=== PATIENT | male | born 1965 | race Caucasian/White ===

== ENCOUNTER 2016-09-23 01:34 | Emergency (ER) | payer OTHER ==
--- NOTE | 2016-09-23 04:11 | ED NURSING NOTES ---
Clinical Report - Nurses [facility] [address] [place] [address] 09/23/2016 1:34 Patient: JAIC MCMAHON JR TRIAGE Triage time 01:Sep 23 2016. Acuity: LEVEL 3. Chief Complaint: ABDOMINAL PAIN, NAUSEA and VOMITING and (Bilat Lower quadrant ABD pain. Started at 2130). 01:42 09/23/16. SEPSIS SCREEN: Sepsis Screen. Negative (no infection suspected/documented). --01:42 Anabel Resendiz R.N. 01:37 09/23/16. BP: 129/83 (large adult cuff) taken on the left arm, while sitting. HR: 66. RR: 20. O2 saturation: 100% on room air. Temp: 98.1 F (oral). Pain level now: 01/31. --01:42 Anabel Resendiz R.N. Weight: 90.7 kg stated. Height/Length: 65 inches Per Patient. BMI: 33.3. --01:41 Anabel Resendiz R.N. Medications ASA Oral. Flonase Nasal. Marijuana (for pain). Montelukast Sodium Oral. Omeprazole Oral. PRO AIR INHALER. Ranitidine HCl Oral. Simvastatin Oral. Vitamins/Minerals Oral. ZyrTEC Allergy Oral. --01:38 Anabel Resendiz R.N. Allergies Latex. Penicillin. --01:38 Anabel Resendiz R.N. History Arrived by EMS. Historian: patient. The patient has had nausea, vomiting and abdominal pain. 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 SOCIAL HX: Never smoker. History of occasional drug use: marijuana. (3 weeks ago). No alcohol use. No recent travel. No infectious disease exposure. No known contact with a sick individual. ABUSE ASSESSMENT: No report of abuse. --01:42 Anabel Resendiz R.N. Last oral intake by patient was dinner. --01:43 Anabel Resendiz R.N. PROBLEMS: Sleep apnea . Wears Contacts. Corneal Ulcer. Hypercholesterolemia. COPD - Chronic Obstructive Pulmonary Disease. Asthma. --01:38 Anabel Resendiz R.N. ADDITIONAL SURGERIES: Knee Surgery. Shoulder Surgery. --01:38 Anabel Resendiz R.N. Interventions ID band on patient. To treatment room. --01:42 Anabel Resendiz R.N. NURSING PROGRESS NOTES 01:42 09/23/16. The plan of care for this patient has been created. Monitoring of patient in place. Patient gowned. Head of bed elevated. Reassurance given. Two patient identifiers checked. Call light placed in reach. Side rails up x 2. Bed placed in lowest position. Brakes of bed on. Patient ready for evaluation- chart flagged and ED physician notified. --01:42 Anabel Resendiz R.N. 01:50 09/23/2016 Site #1 started via IV in the left antecubital space with an 20g angiocath, with aseptic technique and good blood return; one attempt. Blood drawn: rainbow set. Labeled in the presence of the patient and sent to the lab. Saline lock flushed with 10 mL saline (Preformed by LIDIA Chase). --01:51 Anabel Resendiz R.N. 01:51 09/23/2016 Zofran (Ondansetron HCl) IVP 4 mg given over 1 minute(s) via site #1. Allergies verified and confirmed 5 rights. IV patency established. IV site checked: no pain, redness, or swelling. IV flushed thoroughly pre- and post-medication administration. IVP given by RN. --01:51 Anabel Resendiz R.N. 02:07 09/23/2016 Dilaudid (HYDROmorphone HCl PF) IVP 0.5 mg given over 2 minute(s) via site #1. Sedative warning given to the patient. IV patency established. IV site checked: no pain, redness, or swelling. IV flushed thoroughly pre- and post-medication administration. IVP given by RN. --02:12 Salvatore Kennedy R.N. 02:25 09/23/16. ( Patients pain comes and goes, bilat lower abd, blanket given). --02:25 Anabel Resendiz R.N. 02:23 09/23/16. BP: 151/72. HR: 71. RR: 18. O2 saturation: 100% on room air. Pain level now: 12/01. --02:25 Anabel Resendiz R.N. 03:13 09/23/16. ( Patient resting, nausea has decreased. Patient still having bilat lower abd pain that comes and goes. Patient given blanket for comfort measures). --03:13 Anabel Resendiz R.N. 03:16 09/23/16. BP: 110/51 (large adult cuff) taken on the left arm, while sitting. HR: 81. RR: 18. O2 saturation: 95% on room air. Pain level now: 07/01. --03:22 Anabel Resendiz R.N. <<STRICKEN ENTRY-- 03:59 09/23/16. ( Patients friend at bedside now, patient talkative with friend. Patient offered blanket and he declined). --03:59 Anabel Resendiz R.N. --END STRIKE>> Charted On Wrong Patient --04:09 Anabel Resendiz R.N. <<STRICKEN ENTRY-- 03:59 09/23/16. BP: 111/63 (regular adult cuff) taken on the left arm. HR: 79. RR: 18. O2 saturation: 92% on room air. --04:00 Anabel Resendiz R.N. --END STRIKE>> Charted on wrong patient. --04:09 Anabel Resendiz R.N. DISPOSITION / DISCHARGE 04:49 09/23/2016 Site #1 removed upon discharge. Bandaid applied. --04:49 Anabel Resendiz R.N. 04:50 09/23/16. Departure time: 04:45 Sep 23 2016. Condition at departure: improved. No learning barriers present. Discharge instructions provided and reviewed with the patient. Reviewed medication(s) side effects, precautions, dosing and course information. Prescription(s) given to the patient. Patient verbalized understanding. Written instructions provided in Arabic. The patient was discharged by the physician. He was discharged home. He left the Emergency Department ambulatory and via taxi. Driving (Taxi). --04:50 Anabel Resendiz R.N. 04:48 09/23/16. BP: 119/61 (large adult cuff) taken on the left arm. HR: 83. RR: 16. O2 saturation: 96% on room air. Temp: 98.2 F (oral). Pain level now: 07/01. --04:50 Anabel Resendiz R.N. Locked/Released at 09/23/2016 4:53 by Anabel Resendiz R.N.
--- NOTE | 2016-09-23 04:11 | ED ORDER SUMMARY ---
..... Patient: JACI MCMAHON JR OrderSheet [facility] VisitID: [id number] [address] [place] [address] 51y, M Registration Date/Time: 09/23/2016 ORDER SHEET Weight: 90.7 kg (stated) Allergies: Latex, Penicillin GENERAL ORDERS: CBC w Diff Urgent (:09/23/2016 JSanders R.N. per protocol) (1:50 JSanders R.N.) CMP Urgent (:09/23/2016 JSanders R.N. per protocol) (1:50 JSanders R.N.) PT with INR Urgent (:09/23/2016 JSanders R.N. per protocol) (1:50 JSanders R.N.) Amylase Urgent (:09/23/2016 JSanders R.N. per protocol) (1:50 JSanders R.N.) Lipase Urgent (:09/23/2016 JSanders R.N. per protocol) (1:50 JSanders R.N.) MEDICATION ORDERS: IV FLUIDS: IV Saline Lock (:09/23/2016 JSanders R.N. per protocol) (1:51 JSanders R.N.) Zofran IV 4 mg (NOW) (:49 09/23/2016 JSanders R.N. per protocol) (1:51 JSanders R.N.) Dilaudid IV 0.5 mg (HIGH ALERT MEDICATION, NOW) (02:05 09/23/2016 Adalberto FREDERICK) (Ack 2:06 DDavis R.N.) (2:12 DDavis R.N.) ORDER SHEET NOTES: [Electronically signed by Anabel Resendiz R.N. (04:53 09/23/2016)] [Electronically signed by Deepa Leiva MD (11:06 10/06/2016)] [Electronically locked/signed by Anabel Resendiz R.N. (04:53 09/23/2016)]
--- NOTE | 2016-09-23 04:11 | ED ORDER SUMMARY ---
..... Patient: JACI MCMAHON JR OrderSheet [facility] VisitID: [id number] [address] [place] [address] 51y, M Registration Date/Time: 09/23/2016 ORDER SHEET Weight: 90.7 kg (stated) Allergies: Latex, Penicillin GENERAL ORDERS: CBC w Diff Urgent (:09/23/2016 JSanders R.N. per protocol) (1:50 JSanders R.N.) CMP Urgent (:09/23/2016 JSanders R.N. per protocol) (1:50 JSanders R.N.) PT with INR Urgent (:09/23/2016 JSanders R.N. per protocol) (1:50 JSanders R.N.) Amylase Urgent (:09/23/2016 JSanders R.N. per protocol) (1:50 JSanders R.N.) Lipase Urgent (:09/23/2016 JSanders R.N. per protocol) (1:50 JSanders R.N.) MEDICATION ORDERS: IV FLUIDS: IV Saline Lock (:09/23/2016 JSanders R.N. per protocol) (1:51 JSanders R.N.) Zofran IV 4 mg (NOW) (:49 09/23/2016 JSanders R.N. per protocol) (1:51 JSanders R.N.) Dilaudid IV 0.5 mg (HIGH ALERT MEDICATION, NOW) (02:05 09/23/2016 Adalberto FREDERICK) (Ack 2:06 DDavis R.N.) (2:12 DDavis R.N.) ORDER SHEET NOTES: [Electronically signed by Anabel Resendiz R.N. (04:53 09/23/2016)] [Electronically signed by Deepa Leiva MD (11:06 10/06/2016)] [Electronically locked/signed by Anabel Resendiz R.N. (04:53 09/23/2016)]
--- NOTE | 2016-09-23 04:11 | ED CLINICAL REPORT ---
Clinical Report - Physicians/Mid Levels [facility] [address] [place] [address] 09/23/2016 1:34 Patient: JACI MCMAHON JR Time Seen: 01:47. Arrived- By private vehicle. Historian- patient. HISTORY OF PRESENT ILLNESS Chief Complaint: ABDOMINAL PAIN and VOMITING. At its maximum, severity described as moderate. When seen in the E.D., severity described as moderate. Modifying factors. Not worsened by anything. Not relieved by anything. It is described as "pain" and it is described as located in the right lower quadrant and left lower quadrant and in the lower abdomen. This started yesterday at about 2130 and is still present. The patient has had nausea, loss of appetite and vomiting. No diarrhea. Similar symptoms previously: Occasionally. Recent medical care: Not recently seen/assessed. REVIEW OF SYSTEMS No constipation, black stools, hematemesis, difficulty with urination or pain with urination. No urinary frequency, bloody stools, fever, headache or sore throat. No blurred vision, chest pain, difficulty breathing, cough or joint pain. No skin rash, chills or back pain. All systems otherwise negative, except as recorded above. PAST HISTORY Problems: Sleep apnea . Corneal Ulcer. Allergies. Hypercholesterolemia. COPD - Chronic Obstructive Pulmonary Disease. Asthma. Additional Surgeries: Knee Surgery. Shoulder Surgery. Medications: ASA Oral. Flonase Nasal. Marijuana (for pain). Montelukast Sodium Oral. Omeprazole Oral. PRO AIR INHALER. Ranitidine HCl Oral. Simvastatin Oral. Vitamins/Minerals Oral. ZyrTEC Allergy Oral. Allergies: Latex. Penicillin. SOCIAL HISTORY Never smoker. History of occasional drug use: marijuana. No alcohol use. ADDITIONAL NOTES The nursing notes have been reviewed. PHYSICAL EXAM Vital Signs: 09/23/2016 01:37 BP: 129/83. HR: 66. RR: 20. O2 saturation: 100%. Temp: 98.1 F. Pain level now: 10/10. Have been reviewed. Appearance: Alert. Oriented X3. No acute distress. Eyes: Pupils equal, round and reactive to light. Eyes normal inspection. ENT: Nose normal. Neck: Normal inspection. CVS: Normal heart rate and rhythm. Heart sounds normal. Pulses normal. Respiratory: No respiratory distress. Breath sounds normal. Abdomen: Soft. Mild tenderness in the periumbilical area. No guarding or rebound tenderness. Back: Normal inspection. No CVA tenderness. Skin: Skin warm and dry. Normal skin color. No rash. Normal skin turgor. Extremities: Extremities exhibit normal ROM. No lower extremity edema. Neuro: No motor deficit. No sensory deficit. (Grossly oriented.). LABS, X-RAYS, AND EKG Laboratory Tests: CBC w Diff: (MARIELA: 09/23/2016 01:45) ( MsgRcvd 09/23/2016 01:59) Final results Test Result Flag Units (Reference) WHITE BLOOD COUNT 22.4 H K/uL (4.5-11.5) RED BLOOD COUNT 5.49 M/uL (4.50-5.90) HEMOGLOBIN 15.9 gm/dL (13.5-17.5) HEMATOCRIT 48.1 % (41.0-53.0) MEAN CELL VOLUME 88 fL (80-100) MEAN CORPUSCULAR HGB 29 pg (26-34) MEAN CORPUSCULAR HGB CONC 33 g/dL (31-37) RED CELL DISTRIBUTION WIDTH 13.3 % (11.6-14.8) PLATELET COUNT 347 K/uL (150-400) NEUTROPHIL % 79.1 H % (50-75) LYMPH % 16.6 L % (25-40) MONO % 3.2 % (3-14) EOSINOPHIL % 0.8 % (0-4) BASOPHIL % 0.3 % (0-2) PT with INR: (MARIELA: 09/23/2016 01:45) ( MsgRcvd 09/23/2016 02:07) Final results Test Result Flag Units (Reference) INR 1.0 (0.8-1.2) Low Intensity Therapy: INR 1.5-2.0 PT range 18.5-23.1Mod.Intensity Therapy: INR 2.0-3.0 PT range 23.1-31.5High Intensity Therapy: INR 2.5-3.5 PT range 27.4-35.5High Intensity Therapy 2: INR 3.0-4.0 PT range 31.5-39.3 CMP: (MARIELA: 09/23/2016 01:45) ( MsgRcvd 09/23/2016 02:13) Final results Test Result Flag Units (Reference) GLUCOSE 145 H mg/dL (70-110) BUN 9 mg/dL (7-18) CREATININE 1.2 mg/dL (0.6-1.3) Estimated GFR >60 mL/min Estimated GFR- >60 mL/min Note: Persistent reduction over 3 months in eGFR<60 mL/min/1.73 m2 defines CKD. Patients with eGFR values>=60 mL/min/1.73 m2 may also have CKD if evidence ofpersistent proteinuria. Additional information may be foundat www.kidney.org. SODIUM 140 mmol/L (136-145) POTASSIUM 4.3 mmol/L (3.5-5.1) CHLORIDE 101 mmol/L (98-107) CARBON DIOXIDE 27 mmol/L (21-32) CALCIUM 9.8 mg/dL (8.5-10.1) TOTAL PROTEIN 8.0 g/dL (6.4-8.2) ALBUMIN 3.9 g/dL (3.3-5.0) BILIRUBIN, TOTAL 0.4 mg/dL (0.0-1.0) ALKALINE PHOSPHATASE 61 U/L (46-116) AST (SGOT) 25 U/L (15-37) ALT (SGPT) 41 U/L (12-78) LIPASE 227 U/L (73-393) AMYLASE 58 U/L (25-115) . Pulse Oximetry: 09/23/2016 01:37 O2 saturation: 100%. (FIO2 - room air). Interpretation: normal. PROGRESS AND PROCEDURES Course of Care: PT was given Zofran, Dilaudid, and IV fluid for symptomatic relief. His abdominal pain and tenderness was nonspecific, and pt was worked up with labs and a UA. These were unremarkable, other than a leukocytosis. At this point, the pt does not have a surgical abdomen, and the tenderness is nonspecific. I do not feel that CT is indicated at this time. We have discussed the usual indications for return. Patient counseled in person regarding the patient's stable condition, test results, diagnosis and need for follow-up. Concerns were addressed. Old medical records reviewed. Disposition: Discharged. Condition: stable and improved. CLINICAL IMPRESSION Acute food sensitivity gastroenteritis. INSTRUCTIONS Take clear liquids only (frequent sips; plenty of fluids) as needed and until better. Advance diet as tolerated. Warnings: GENERAL WARNINGS: Return or contact your physician immediately if your condition worsens or changes unexpectedly, if not improving as expected, or if other problems arise. Your Current Medications: CONTINUE TAKING THE FOLLOWING MEDICATIONS: ASA Oral. Flonase Nasal. Marijuana* : for pain. Montelukast Sodium Oral. Omeprazole Oral. PRO AIR INHALER*. Ranitidine HCl Oral. Simvastatin Oral. Vitamins/Minerals Oral. ZyrTEC Allergy Oral. Prescription Medications: Zofran (orally disintegrating tablets) 4 mg: take 1-2 orally every 6 hours as needed for nausea. Dispense twenty (20). No refill. Substitution is permissible. Follow-up: Follow up with your doctor as needed. Understanding of the discharge instructions verbalized by patient. (Electronically signed by Deepa Leiva MD 10/06/2016 11:06)
--- NOTE | 2016-10-06 11:06 | ED DISCHARGE INSTRUCTIONS ---
Patient: JACI MCMAHON JR General Instructions [facility] VisitID: [id number] [place] [address] 51y, M Registration Date/Time: 09/23/2016 Acute food sensitivity gastroenteritis. INSTRUCTIONS Take clear liquids only (frequent sips; plenty of fluids) as needed and until better. Advance diet as tolerated. Warnings: GENERAL WARNINGS: Return or contact your physician immediately if your condition worsens or changes unexpectedly, if not improving as expected, or if other problems arise. Your Current Medications: CONTINUE TAKING THE FOLLOWING MEDICATIONS: ASA Oral. Flonase Nasal. Marijuana* : for pain. Montelukast Sodium Oral. Omeprazole Oral. PRO AIR INHALER*. Ranitidine HCl Oral. Simvastatin Oral. Vitamins/Minerals Oral. ZyrTEC Allergy Oral. Prescription Medications: Zofran (orally disintegrating tablets) 4 mg: take 1-2 orally every 6 hours as needed for nausea. Dispense twenty (20). No refill. Substitution is permissible. Follow-up: Follow up with your doctor as needed. Understanding of the discharge instructions verbalized by patient. ADDITIONAL INFORMATION Food Poisoning Or Viral Gastroenteritis (6Yr-Adult) You have a stomach illness that is likely either food poisoning or viral gastroenteritis. Food poisoning occurs from1 to 24 hours after eating contaminated food and lasts up to 1 to 2 days. Viral gastroenteritis is commonly known as the stomach flu. It may last up to a week. Symptoms of both illnesses may include vomiting, diarrhea, fever, and stomach cramping. Antibiotics are not an effective treatment for either problem, but simple home treatment can give relief. Home Care: If symptoms are severe, rest at home for the next 24 hours. You may use acetaminophen (Tylenol) or ibuprofen (Motrin, Advil) to control fever, unless another medication was prescribed. [NOTE: If you have chronic liver or kidney disease or ever had a stomach ulcer or GI bleeding, talk with your doctor before using these medications. Do not give aspirin to anyone under 18 years of age who is ill with a fever.] Avoid tobacco and alcohol consumption. These may worsen your symptoms. If medicines for diarrhea or vomiting were prescribed, take these only as directed. Never take these without a healthcare providers approval. During the first12 to 24hours follow the diet below: BEVERAGES: Sport drinks like Gatorade, soft drinks without caffeine; timo bishnu, mineral water (plain or flavored), decaffeinated tea and coffee. SOUPS: Clear broth, consomm and bouillon DESSERTS: Plain gelatin (Jell-O), popsicles and fruit juice bars. During the next 24 hours you may add the following to the above: Hot cereal, plain toast, bread, rolls, crackers Plain noodles, rice, mashed potatoes, chicken noodle or rice soup Unsweetened canned fruit (avoid pineapple), bananas Limit fat intake to less than 15 grams per day by avoiding margarine, butter, oils, mayonnaise, sauces, gravies, fried foods, peanut butter, meat, poultry, and fish. Limit fiber; avoid raw or cooked vegetables, fresh fruits (except bananas) and bran cereals. Limit caffeine and chocolate. No spices or seasonings except salt. Gradually resume a normal diet as you feel better and your symptoms lessen. Follow Up with your doctor as advised if you are not better in 2 days. If a stool (diarrhea) sample was taken, you may call in 2 days (or as directed) for the results. Get Prompt Medical Attention if any of the following occur: Increasing abdominal pain or constant lower right abdominal pain Continued vomiting (unable to keep liquids down) Frequent diarrhea (more than 5 times a day) Blood in vomit or stool (black or red color) Signs of dehydration: increased thirst, dark urine, reduced or no urine output, dry mouth and tongue, tireness or weakness, dizziness when standing, rapid breathinng New rash Fever of 100.4F (38C) oral or higher, not better with fever medication You have been given the following additional information: Food Poisoning Or Gastroenteritis (6Y-Adult) (Electronically signed by Deepa Leiva MD 10/06/2016 11:06)
--- NOTE | 2016-10-06 11:06 | ED MAR SUMMARY ---
..... Medication Administration Record [facility] [address] [place] [address] Patient: JACI MCMAHON Visit ID: [id number] 51y, M Weight: 90.7 kg Height/Length: 65 in BMI: 33.3 ALLERGIES: Latex, Penicillin Given 01:51 09/23/2016 Anabel Resendiz R.N. Medication Administered: ZOFRAN [IVP] (ONDANSETRON HCL), Dose: 4 mg IVP over 1 minute(s), Site: #1 left AC. Medication Ordered: Zofran IV 4 mg (NOW). Given 02:07 09/23/2016 Salvatore Kennedy R.N. Medication Administered: DILAUDID [IVP] (HYDROMORPHONE HCL PF), Dose: 0.5 mg IVP over 2 minute(s), Site: #1 left AC. Medication Ordered: Dilaudid IV 0.5 mg (HIGH ALERT MEDICATION, NOW).
--- NOTE | 2016-10-06 11:06 | ED MAR SUMMARY ---
..... Medication Administration Record [facility] [address] [place] [address] Patient: JACI MCMAHON Visit ID: [id number] 51y, M Weight: 90.7 kg Height/Length: 65 in BMI: 33.3 ALLERGIES: Latex, Penicillin Given 01:51 09/23/2016 Anabel Resendiz R.N. Medication Administered: ZOFRAN [IVP] (ONDANSETRON HCL), Dose: 4 mg IVP over 1 minute(s), Site: #1 left AC. Medication Ordered: Zofran IV 4 mg (NOW). Given 02:07 09/23/2016 Salvatore Kennedy R.N. Medication Administered: DILAUDID [IVP] (HYDROMORPHONE HCL PF), Dose: 0.5 mg IVP over 2 minute(s), Site: #1 left AC. Medication Ordered: Dilaudid IV 0.5 mg (HIGH ALERT MEDICATION, NOW).
--- NOTE | 2016-10-06 11:06 | ED MED RECONCILIATION SUMMARY ---
Patient: JACI MCMAHON Medication Reconciliation Report [facility] VisitID: [id number] [address] [place] [address] 51y, M Registration Date/Time: 09/23/2016 Weight: 90.7 kg Height/Length: 65 in. BMI: 33.3 ALLERGIES: Latex, Penicillin The patient's Home Medications are listed below: CONTINUE TAKING THE FOLLOWING MEDICATIONS: ASA Oral Flonase Nasal Marijuana, for pain Montelukast Sodium Oral Omeprazole Oral PRO AIR INHALER Ranitidine HCl Oral Simvastatin Oral Vitamins/Minerals Oral ZyrTEC Allergy Oral The source(s) of the original Home Medication information: Not obtained. The following Medications were given to the patient in the Emergency Department: Zofran [IVP] IVP 4 mg, administered: 09/23/2016 1:51:00 AM Dilaudid [IVP] IVP 0.5 mg, administered: 09/23/2016 2:07:00 AM The following Medications were prescribed to the patient: Zofran (orally disintegrating tablets) 4 mg: take 1-2 orally every 6 hours as needed for nausea. Dispense twenty (20). No refill. Substitution is permissible. -- Deepa Leiva MD
--- NOTE | 2016-10-06 11:06 | ED MED RECONCILIATION SUMMARY ---
Patient: JACI MCMAHON Medication Reconciliation Report [facility] VisitID: [id number] [address] [place] [address] 51y, M Registration Date/Time: 09/23/2016 Weight: 90.7 kg Height/Length: 65 in. BMI: 33.3 ALLERGIES: Latex, Penicillin The patient's Home Medications are listed below: CONTINUE TAKING THE FOLLOWING MEDICATIONS: ASA Oral Flonase Nasal Marijuana, for pain Montelukast Sodium Oral Omeprazole Oral PRO AIR INHALER Ranitidine HCl Oral Simvastatin Oral Vitamins/Minerals Oral ZyrTEC Allergy Oral The source(s) of the original Home Medication information: Not obtained. The following Medications were given to the patient in the Emergency Department: Zofran [IVP] IVP 4 mg, administered: 09/23/2016 1:51:00 AM Dilaudid [IVP] IVP 0.5 mg, administered: 09/23/2016 2:07:00 AM The following Medications were prescribed to the patient: Zofran (orally disintegrating tablets) 4 mg: take 1-2 orally every 6 hours as needed for nausea. Dispense twenty (20). No refill. Substitution is permissible. -- Deepa Leiva MD
== END 2016-09-23 04:45 | disposition home or self-care (01) ==
LOC: ED SRH 01:34
DX: K52.29 Other allergic and dietetic gastroenteritis and colitis (principal); J44.9 Chronic obstructive pulmonary disease, unspecified; Z79.82 Long term (current) use of aspirin; Z88.0 Allergy status to penicillin; Z91.040 Latex allergy status; J45.909 Unspecified asthma, uncomplicated; Z79.899 Other long term (current) drug therapy
CPT/HCPCS: 90100; 92235; 92530; 94060; 95059

== ENCOUNTER 2016-10-03 10:33 | Emergency (ER) | payer OTHER ==
--- NOTE | 2016-10-03 12:31 | DIAGNOSTIC IMAGING REPORT ---
PROCEDURE: XR CHEST 1 VIEW INDICATION: SHORTNESS OF BREATH TECHNIQUE: Portable AP view 11:19 a.m. COMPARISON: None. FINDINGS: Lungs are clear. Heart and mediastinum are normal. Thorax is normal. Chest is rotated. IMPRESSION: 1. Negative rotated chest.
--- NOTE | 2016-10-03 16:10 | ED NURSING NOTES ---
Clinical Report - Nurses [facility] [address] [place] [address] 10/03/2016 10:39 Patient: JACI MCMAHON JR TRIAGE Triage time 1040. Acuity: LEVEL 3. Chief Complaint: CHEST PAIN and (pt states he awoke this am with SOB and chest pain. pt states he "hurts all over" and has arthritis "so thats normal" but his SOB was worse today). --10:50 Kami Hair R.N. 10:40 10/03/16. BP: 146/87. HR: 69. RR: 20. O2 saturation: 99%. Temp: 97.9 F. Pain level now: 08/01. --10:50 Kami Hair R.N. Weight: 89.3 kg stated. Height/Length: 65 inches Per Patient. BMI: 32.8. --10:45 Kami Hair R.N. Medications ASA Oral 81mg, daily. Flonase Nasal 2 sprays, at bedtime. Marijuana 4-5, daily (for pain, hasnt had lately). Montelukast Sodium Oral 10 mg, daily. Omeprazole Oral 20 mg, 2x a day. PRO AIR INHALER 2 puffs prn. Ranitidine HCl Oral 150 mg, 2x a day. Simvastatin Oral 20 mg, daily. Vitamins/Minerals Oral 1 pill, daily. --10:59 Kami Hair R.N. Cetirizine HCl Oral 10 mg, daily. Doxylamine Succinate (Sleep) Oral (Tablet 25 mg) 2 tablets, hs. Loratadine Oral 10 mg, at bedtime. Melatin Oral 2 tabs at HS . MetFORMIN HCl Oral 500 mg, 2x a day. Niacin Oral 1000, at bedtime. --11:06 Kami Hair R.N. Senna Oral 1 daily . --11:08 Kami Hair R.N. Allergies Latex.(rash) Penicillin.(rash) --10:59 Kami Hair R.N. History Arrived by EMS. Historian: patient. Unaccompanied. Primary physician (Tom). The patient has had difficulty breathing and a cough. No sweating episodes or nausea. SOCIAL HX: Former smoker (cigar) (quit chewing in 1991). Alcohol use. (quit when he was 23). History of drug use: marijuana. --10:50 Kami Hair R.N. Treatment TAXI DANCER: (pt took ASA 81mg and used albuterol MDI prior to arrival to ED). See EMS report. --11:15 Kami Hair R.N. PROBLEMS: PTSD. Diabetes Mellitus. Depression. Gastroenteritis. URI. Sleep apnea . Corneal Ulcer. Hypercholesterolemia. COPD - Chronic Obstructive Pulmonary Disease. Asthma. --10:47 Kami Hair R.N. Anxiety Reaction. --10:54 Kami Hair R.N. ADDITIONAL SURGERIES: Knee Surgery. Shoulder Surgery. --10:47 Kami Hair R.N. Interventions ID band on patient. To treatment room. --10:50 Kami Hair R.N. PHYSICAL ASSESSMENT 10:40. To room via stretcher. Patient gowned. GENERAL / NEURO / PSYCH: Alert. Oriented X 4. RESPIRATORY: Mild respiratory distress. CVS: Pulses within normal limits. Capillary refill less than 2 seconds. EXTREMITIES: Bilateral 1+ edema of the lower extremities involving both ankles. SKIN: Skin is warm and dry. --10:52 Kami Hair R.N. NURSING PROGRESS NOTES 10:40. Oxygen administered. secured entrance monitor placed on patient. Patient gowned. Head of bed elevated. Reassurance given. Patient identifiers checked. Call light placed in reach. Side rails up. Bed placed in lowest position. Patient ready for evaluation- chart flagged. --10:51 aKmi Hair R.N. 10:46. EKG time: (1046). EKG was ordered, performed by a tech and shown to the ED physician. done by Tia denny. --10:53 Kami Hair R.N. 11:04 10/03/2016 Site #1 started via IV in the left antecubital space with an 20g angiocath, with aseptic technique and good blood return. Blood drawn. Labeled in the presence of the patient and sent to the lab. Saline lock flushed with 10 mL saline. --11:09 Deborah Chatman R.N. 11:05 10/03/16. BP: 146/87. HR: 68. RR: 16. O2 saturation: 100% on nasal cannula at 2 liters/minute. Temp: deferred. Pain level now: 08/31. --11:10 Kami Hair R.N. late entry -11:04 IV started, bloods to lab. pt resting queitly, watching t.v. --11:14 Kami Hair R.N. 11:14 10/03/2016 Ativan (LORazepam) IVP 0.5 mg given over 1 minute(s) via site #1. IV patency established. IV site checked: no pain, redness, or swelling. IV flushed thoroughly pre- and post-medication administration. IVP given by RN. --11:30 Kami Hair R.N. 11:15 10/03/2016 Aspirin PO Tablets 324 mg given. Allergies verified and confirmed 5 rights. --11:30 Kami Hair R.N. 11:15. Portable chest x-ray ordered, performed and shown to the ED physician. --11:31 Kami Hair R.N. 12:30 10/03/16. BP: 110/76. HR: 73. RR: 18. O2 saturation: 100%. Temp: deferred. Pain level now: 12/01. Additional comments: chronic back pain, "nothing in chest right now". --12:34 Kami Hair R.N. ( Pt given lunch tray, resting quietly, bed adjusted for back pain). --13:17 Kami Hair R.N. 13:00 10/03/16. BP: 138/70. HR: 70. RR: 18. O2 saturation: 100% on nasal cannula at 2 liters/minute. Temp: deferred. Pain level now: 10/31. --13:17 Kami Hair R.N. 14:15 10/03/16. BP: 147/61. HR: 74. RR: 18. O2 saturation: 100% on nasal cannula at 2 liters/minute. Temp: deferred. Pain level now: 10/31. Additional comments: back pain, resting quietly in no acute distress . --14:43 Kami Hair R.N. EKG time: (1444). EKG was ordered, performed by a tech and shown to the ED physician. --14:46 Tia Farrell ER Tech1 14:47. Patient ID band checked for patient name and birthdate: patient confirmed. Blood samples drawn by nurse per protocol ; labeled in presence of the patient and sent to lab: [facility]. (blood drawn from hep lock site for lab. 5cc drawn and wasted, then 6cc drawn for lab sample). --14:53 Kami Hair R.N. 15:30 10/03/16. BP: 140/68. HR: 72. RR: 18. O2 saturation: 100%. Temp: deferred. Pain level now: 10/31. Additional comments: resting quietly, waiting for lab results. given additional sprite . --20:28 Kami Hair R.N. 16:10 10/03/2016 Site #1 removed upon discharge. Bandaid applied. --20:31 Kami Hair R.N. 16:20 10/03/2016 IV Saline Lock Drip IV Discontinued: STOPPED upon discharge. Total amount infused: 0 mL. IV patency established. IV site checked: no pain, redness, or swelling. IV flushed thoroughly. --20:31 Kami Hair R.N. DISPOSITION / DISCHARGE 1620. Condition at departure: improved and stable. No learning barriers present. Discharge instructions provided and reviewed with the patient. Reviewed medication(s) (hydroxazine -- continue other usual meds). Patient verbalized understanding. Written instructions provided in Bahamian. ( pt will call [facility] to take him back to his car. Pt is homeless and lives in car.). --20:30 Kami Hair R.N. 16:20 10/03/16. BP: 143/70. HR: 73. RR: 18. O2 saturation: 100%. Temp: deferred. Pain level now: 10/31. --20:30 Kami Hair R.N. Locked/Released at 10/03/2016 20:32 by Kami Hair R.N.
--- NOTE | 2016-10-03 16:10 | ED ORDER SUMMARY ---
..... Patient: JACI MCMAHON JR OrderSheet [facility] VisitID: [id number] [place] [address] 51y, M Registration Date/Time: 10/03/2016 ORDER SHEET Weight: 89.3 kg (stated) Allergies: Latex, Penicillin GENERAL ORDERS: Internal Revenue Agent (Continuous) (11:10/03/2016 Rubens FREDERICK) (11:14 DDean R.N.) (11:15 LAbe R.N.) Chest 1V Urgent (11:10/03/2016 Rubens FREDERICK) (Ack 11:10 PWeiler ER Tech1) (11:29 DDean R.N.) Cardiac Panel Stat (:10/03/2016 Rubens FREDERICK) (Ack 11:10 ZANEeivirginie ER Tech1) (11:14 DDean R.N.) (11:16 LAbe R.N.) BNP Urgent (11:10/03/2016 Rubens FREDERICK) (Ack 11:10 ZANEeivirginie ER Tech1) (11:14 DDean R.N.) (11:16 LAbe R.N.) D-Dimer Urgent (11:10/03/2016 Rubens FREDERICK) (Ack 11:10 Chelsie ER Tech1) (11:14 DDean R.N.) (11:16 LAbe R.N.) TSH Urgent (11:10/03/2016 Rubens FREDERICK) (Ack 11:10 ZANEeivirginie ER Tech1) (11:14 DDean R.N.) (11:16 LAbe R.N.) Oxygen (2 L/min) (NC) (11:10/03/2016 Rubens FREDERICK) (11:14 DDean R.N.) (11:15 LAbe R.N.) Pulse oximeter (:10/03/2016 Rubens FREDERICK) (11:14 DDean R.N.) (11:15 LAbe R.N.) EKG - ER Stat (:10/03/2016 Rubens FREDERICK) (Ack 11:10 PWeiler ER Tech1) (11:10 PWeiler ER Tech1) Troponin-I Urgent (13:41 10/03/2016 Rubens FREDERICK) (Ack 13:43 PWeiler ER Tech1) (15:48 PWeiler ER Tech1) EKG - ER Stat (13:41 10/03/2016 Rubens FREDERICK) (Ack 13:43 PWeiler ER Tech1) (13:43 PWeiler ER Tech1) EKG - ER Repeat Stat (14:45 10/03/2016 LNations ER Tech1 verbal order read back to Rubens FREDERICK) (Cancelled: Duplicate Order14:46 LNations ER Tech1) MEDICATION ORDERS: Aspirin PO 325 mg (Do not crush or chew) (11:16 10/03/2016 Rubens FREDERICK) (11:30 DDean R.N.) IV FLUIDS: IV Saline Lock (11:08 10/03/2016 Rubens FREDERICK) (Ack 11:09 LAbe R.N.) (11:09 LAbe R.N.) Ativan IV 0.5 mg (NOW) (11:10 10/03/2016 Rubens FREDERICK) (Ack 11:15 DDean R.N.) (11:30 DDean R.N.) ORDER SHEET NOTES: [Electronically signed by Kami Hair R.N. (20:32 10/03/2016)] [Electronically signed by Ryan Santoro MD (20:47 10/04/2016)] [Electronically locked/signed by Kami Hair R.N. (20:32 10/03/2016)]
--- NOTE | 2016-10-03 16:10 | ED ORDER SUMMARY ---
..... Patient: JACI MCMAHON JR OrderSheet [facility] VisitID: [id number] [place] [address] 51y, M Registration Date/Time: 10/03/2016 ORDER SHEET Weight: 89.3 kg (stated) Allergies: Latex, Penicillin GENERAL ORDERS: Direct Mail Marketer (Continuous) (11:10/03/2016 Rubens FREDERICK) (11:14 DDean R.N.) (11:15 LAbe R.N.) Chest 1V Urgent (11:10/03/2016 Rubens FREDERICK) (Ack 11:10 PWeiler ER Tech1) (11:29 DDean R.N.) Cardiac Panel Stat (:10/03/2016 Rubens FREDERICK) (Ack 11:10 ZANEeivirginie ER Tech1) (11:14 DDean R.N.) (11:16 LAbe R.N.) BNP Urgent (11:10/03/2016 Rubens FREDERICK) (Ack 11:10 ZANEeivirginie ER Tech1) (11:14 DDean R.N.) (11:16 LAbe R.N.) D-Dimer Urgent (11:10/03/2016 Rubens FREDERICK) (Ack 11:10 Chelsie ER Tech1) (11:14 DDean R.N.) (11:16 LAbe R.N.) TSH Urgent (11:10/03/2016 Rubens FREDERICK) (Ack 11:10 ZANEeivirginie ER Tech1) (11:14 DDean R.N.) (11:16 LAbe R.N.) Oxygen (2 L/min) (NC) (11:10/03/2016 Rubens FREDERICK) (11:14 DDean R.N.) (11:15 LAbe R.N.) Pulse oximeter (:10/03/2016 Rubens FREDERICK) (11:14 DDean R.N.) (11:15 LAbe R.N.) EKG - ER Stat (:10/03/2016 Rubens FREDERICK) (Ack 11:10 PWeiler ER Tech1) (11:10 PWeiler ER Tech1) Troponin-I Urgent (13:41 10/03/2016 Rubens FREDERICK) (Ack 13:43 PWeiler ER Tech1) (15:48 PWeiler ER Tech1) EKG - ER Stat (13:41 10/03/2016 Rubens FREDERICK) (Ack 13:43 PWeiler ER Tech1) (13:43 PWeiler ER Tech1) EKG - ER Repeat Stat (14:45 10/03/2016 LNations ER Tech1 verbal order read back to Rubens FREDERICK) (Cancelled: Duplicate Order14:46 LNations ER Tech1) MEDICATION ORDERS: Aspirin PO 325 mg (Do not crush or chew) (11:16 10/03/2016 Rubens FREDERICK) (11:30 DDean R.N.) IV FLUIDS: IV Saline Lock (11:08 10/03/2016 Rubens FREDERICK) (Ack 11:09 LAbe R.N.) (11:09 LAbe R.N.) Ativan IV 0.5 mg (NOW) (11:10 10/03/2016 Rubens FREDERICK) (Ack 11:15 DDean R.N.) (11:30 DDean R.N.) ORDER SHEET NOTES: [Electronically signed by Kami Hair R.N. (20:32 10/03/2016)] [Electronically signed by Ryan Santoro MD (20:47 10/04/2016)] [Electronically locked/signed by Kami Hair R.N. (20:32 10/03/2016)]
--- NOTE | 2016-10-03 16:10 | ED CLINICAL REPORT ---
Clinical Report - Physicians/Mid Levels [facility] [address] [place] [address] 10/03/2016 10:39 Patient: JACI MCMAHON JR Time Seen: 10:47 Shar 12 2016. Arrived- By ambulance. Historian- patient and EMS personnel. CPT: ER phys charges level 5 plus (#[id number]). EKG interpretation (#[id number]). HISTORY OF PRESENT ILLNESS Chief Complaint: CHEST DISCOMFORT. SHORTNESS OF BREATH. It is described as sharp, "pain" and well localized and chronic and nothing new. and it is described as located in the right chest, central chest and left chest area. This started just prior to arrival and is still present. No nausea, vomiting or diaphoresis. He has had difficulty breathing. (patient notes that he was in his car trying to fix a inflatable pillow with superglue and some other adhesives when this spell of shortness of breath began. He wonders if the fumes may have started this spell. He indicates he is here primarily for shortness of breath and that the chest pain is part of his total body pain that he's had chronically for years. He has nothing new today in terms of chest pain. He also notes that he feels this might be due to anxiety as he's been off of his anxiety medication for the past couple of days.). Similar symptoms previously: As bad. Diagnosis: anxiety. Recent medical care: Not recently seen/assessed. Prehospital Treatment: EMS treatment [facility] verbally communicated. EKG time: (10:19 AM). The pre-hospital EKG has been interpreted. The pre-hospital EKG appears to be a good tracing. Normal sinus rhythm. Normal P-waves and CALDERON. Normal QRS complex. Normal axis. Normal ST and T waves. REVIEW OF SYSTEMS No fever, chills, cough, pedal edema or calf pain. No fainting episodes, sore throat, abdominal pain, black stools or difficulty with urination. No skin rash, enlarged lymph nodes, joint pain or bloody stools. Pt unable to do his CPAP as he is living in his car. Is out of anxiety medications. Due to see his Doctor this week. All systems otherwise negative, except as recorded above. PAST HISTORY Chronic body pain due to arthritis. Allergies May have a mild form of COPD as has been put on. Medications: Senna Oral 1 daily . Cetirizine HCl Oral 10 mg, daily. Doxylamine Succinate (Sleep) Oral (Tablet 25 mg) 2 tablets, hs. Loratadine Oral 10 mg, at bedtime. Melatin Oral 2 tabs at HS . MetFORMIN HCl Oral 500 mg, 2x a day. Niacin Oral 1000, at bedtime. ASA Oral 81mg, daily. Flonase Nasal 2 sprays, at bedtime. Marijuana 4-5, daily (for pain, hasnt had lately). Montelukast Sodium Oral 10 mg, daily. Omeprazole Oral 20 mg, 2x a day. PRO AIR INHALER 2 puffs prn. Ranitidine HCl Oral 150 mg, 2x a day. Simvastatin Oral 20 mg, daily. Vitamins/Minerals Oral 1 pill, daily. Allergies: Latex.(rash) Penicillin.(rash). SOCIAL HISTORY Never smoker. Homeless and lives in his car. ADDITIONAL NOTES The nursing notes have been reviewed. PHYSICAL EXAM Vital Signs: 10/03/2016 10:40 BP: 146/87. HR: 69. RR: 20. O2 saturation: 99%. Temp: 97.9 F. Pain level now: 4/10. Appearance: Alert. Anxious. Patient in mild distress. Eyes: Eyes normal inspection. ENT: Pharynx normal. Neck: Normal inspection. CVS: Normal heart rate and rhythm. Heart sounds normal. Pulses normal. Respiratory: No respiratory distress. Chest pain reproducible with palpation of the costal cartilage, with movement of the trunk and left arm and with deep breathing. Breath sounds normal. Abdomen: Soft and nontender. Bowel sounds normal. Back: Normal external inspection. Skin: Skin warm. Normal skin color. No rash. Extremities: Extremities exhibit normal ROM. Neuro: Oriented X 3. No motor deficit. No sensory deficit. LABS, X-RAYS, AND EKG EKG: EKG time: (10:46 AM). No acute ischemia. Normal sinus rhythm. Normal P waves. Normal CALDERON. Normal QRS complex. Normal axis. Normal ST and T waves. Prior EKG unavailable. The study has been interpreted contemporaneously. The study has been independently viewed by me. The EKG appears to be a good tracing. EKG #2: Normal sinus rhythm. Normal P waves. Normal QRS complex. Normal ST and T waves. EKG unchanged when compared with prior EKG. Laboratory Tests: CBC w Diff: (MARIELA: 10/03/2016 10:57) ( [facility] 10/03/2016 11:19) Final results Test Result Flag Units (Reference) WHITE BLOOD COUNT 13.1 H K/uL (4.5-11.5) RED BLOOD COUNT 4.98 M/uL (4.50-5.90) HEMOGLOBIN 14.5 gm/dL (13.5-17.5) HEMATOCRIT 44.1 % (41.0-53.0) MEAN CELL VOLUME 88 fL (80-100) MEAN CORPUSCULAR HGB 29 pg (26-34) MEAN CORPUSCULAR HGB CONC 33 g/dL (31-37) RED CELL DISTRIBUTION WIDTH 14.2 % (11.6-14.8) PLATELET COUNT 305 K/uL (150-400) NEUTROPHIL % 58.9 % (50-75) LYMPH % 31.4 % (25-40) MONO % 7.0 % (3-14) EOSINOPHIL % 2.4 % (0-4) BASOPHIL % 0.3 % (0-2) [id number]: (MARIELA: 10/03/2016 10:57) ( [facility] 10/03/2016 11:44) Final results Test Result Flag Units (Reference) D-DIMER QUANTITATIVE < 0.27 L ug/mLFEU (0.27-0.52) The primary value of this quantitative assay relates toits negative predictive value (i.e. exclusion) of pulmonaryembolism/deep vein thrombosis/DIC.Elevated levels of d-dimer may also occur with:, age, cancer, inflammation, liver disease,post-op, infection, hematoma, coronary disease, peripheralarteriopathy, bleeding disorders and thrombolytic treatment.Results should be correlated with other clinical andradiological data.Testing Methodology: Latex Immunoassay Troponin-I: (MARIELA: 10/03/2016 14:45) ( [facility] 10/03/2016 15:23) Final results Test Result Flag Units (Reference) TROPONIN I <0.05 ng/mL (0.00-1.5) TROPONIN REFERENCE RANGE:<0.1 NEGATIVE0.1-1.5 INDETERMINANT>1.5 POSITIVE BNP: (MARIELA: 10/03/2016 10:57) ( [facility] 10/03/2016 11:43) Final results Test Result Flag Units (Reference) B-TYPE NATRIURETIC PEPTIDE 31.2 pg/ml (5-100) CHEM 13 PANEL: (MARIELA: 10/03/2016 10:57) ( [facility] 10/03/2016 11:40) Final results Test Result Flag Units (Reference) GLUCOSE 113 H mg/dL (70-110) BUN 13 mg/dL (7-18) CREATININE 1.1 mg/dL (0.6-1.3) Estimated GFR >60 mL/min Estimated GFR- >60 mL/min Note: Persistent reduction over 3 months in eGFR<60 mL/min/1.73 m2 defines CKD. Patients with eGFR values>=60 mL/min/1.73 m2 may also have CKD if evidence ofpersistent proteinuria. Additional information may be foundat [email or web address].org. SODIUM 142 mmol/L (136-145) POTASSIUM 4.2 mmol/L (3.5-5.1) CHLORIDE 105 mmol/L (98-107) CARBON DIOXIDE 31 mmol/L (21-32) CALCIUM 9.4 mg/dL (8.5-10.1) TOTAL PROTEIN 7.2 g/dL (6.4-8.2) ALBUMIN 3.4 g/dL (3.3-5.0) BILIRUBIN, TOTAL 0.2 mg/dL (0.0-1.0) ALKALINE PHOSPHATASE 46 U/L (46-116) AST (SGOT) 19 U/L (15-37) ALT (SGPT) 35 U/L (12-78) CPK 88 U/L (24-260) MAGNESIUM 2.1 mg/dL (1.8-2.4) TROPONIN I <0.05 ng/mL (0.00-1.5) TROPONIN REFERENCE RANGE:<0.1 NEGATIVE0.1-1.5 INDETERMINANT>1.5 POSITIVE THYROID STIMULATING HORMONE 0.850 uIU/mL (0.34-3.74) . PROGRESS AND PROCEDURES Course of Care: 15:03 10/03/16. Staff did not see new orders for EKG and Troponin. Staff working on getting these done now. Labs and EKG normal . Patient/family counseled. Disposition: Discharged. Condition: stable and improved. CLINICAL IMPRESSION Anxiety reaction with hyperventilation. Out of anxiety medications. INSTRUCTIONS Warnings: Further evaluation is necessary. GENERAL WARNINGS: Return or contact your physician immediately if your condition worsens or changes unexpectedly, if not improving as expected, or if other problems arise. Your Current Medications: CONTINUE TAKING THE FOLLOWING MEDICATIONS: ASA Oral : 81mg daily. Cetirizine HCl Oral : 10 mg daily. Doxylamine Succinate (Sleep) Oral : Tablet 25 mg, 2 tablets hs. Flonase Nasal : 2 sprays at bedtime. Loratadine Oral : 10 mg at bedtime. Marijuana* : 4-5 daily, for pain, hasnt had lately. Melatin Oral : 2 tabs at HS. MetFORMIN HCl Oral : 500 mg 2x a day. Montelukast Sodium Oral : 10 mg daily. Niacin Oral : 1000 at bedtime. Omeprazole Oral : 20 mg 2x a day. PRO AIR INHALER* : 2 puffs prn. Ranitidine HCl Oral : 150 mg 2x a day. Senna Oral : 1 daily. Simvastatin Oral : 20 mg daily. Vitamins/Minerals Oral : 1 pill daily. Prescription Medications: Hydroxyzine 50 mg: Take 1 orally every 6 hours as needed for anxiety. Dispense twenty (20). No refills. Follow-up: Follow up with your doctor in three days as scheduled. Understanding of the discharge instructions verbalized by patient. (Electronically signed by Ryan Santoro MD 10/04/2016 20:47)
--- NOTE | 2016-10-03 16:10 | ED NURSING NOTES ---
Clinical Report - Nurses [facility] [address] [place] [address] 10/03/2016 10:39 Patient: JACI MCMAHON JR TRIAGE Triage time 1040. Acuity: LEVEL 3. Chief Complaint: CHEST PAIN and (pt states he awoke this am with SOB and chest pain. pt states he "hurts all over" and has arthritis "so thats normal" but his SOB was worse today). --10:50 Kami Hair R.N. 10:40 10/03/16. BP: 146/87. HR: 69. RR: 20. O2 saturation: 99%. Temp: 97.9 F. Pain level now: 08/01. --10:50 Kami Hair R.N. Weight: 89.3 kg stated. Height/Length: 65 inches Per Patient. BMI: 32.8. --10:45 Kami Hair R.N. Medications ASA Oral 81mg, daily. Flonase Nasal 2 sprays, at bedtime. Marijuana 4-5, daily (for pain, hasnt had lately). Montelukast Sodium Oral 10 mg, daily. Omeprazole Oral 20 mg, 2x a day. PRO AIR INHALER 2 puffs prn. Ranitidine HCl Oral 150 mg, 2x a day. Simvastatin Oral 20 mg, daily. Vitamins/Minerals Oral 1 pill, daily. --10:59 Kami Hair R.N. Cetirizine HCl Oral 10 mg, daily. Doxylamine Succinate (Sleep) Oral (Tablet 25 mg) 2 tablets, hs. Loratadine Oral 10 mg, at bedtime. Melatin Oral 2 tabs at HS . MetFORMIN HCl Oral 500 mg, 2x a day. Niacin Oral 1000, at bedtime. --11:06 Kami Hair R.N. Senna Oral 1 daily . --11:08 Kami Hair R.N. Allergies Latex.(rash) Penicillin.(rash) --10:59 Kami Hair R.N. History Arrived by EMS. Historian: patient. Unaccompanied. Primary physician (Tom). The patient has had difficulty breathing and a cough. No sweating episodes or nausea. SOCIAL HX: Former smoker (cigar) (quit chewing in 1991). Alcohol use. (quit when he was 23). History of drug use: marijuana. --10:50 Kami Hair R.N. Treatment SPRING FORMER: (pt took ASA 81mg and used albuterol MDI prior to arrival to ED). See EMS report. --11:15 Kami Hair R.N. PROBLEMS: PTSD. Diabetes Mellitus. Depression. Gastroenteritis. URI. Sleep apnea . Corneal Ulcer. Hypercholesterolemia. COPD - Chronic Obstructive Pulmonary Disease. Asthma. --10:47 Kami Hair R.N. Anxiety Reaction. --10:54 Kami Hair R.N. ADDITIONAL SURGERIES: Knee Surgery. Shoulder Surgery. --10:47 Kami Hair R.N. Interventions ID band on patient. To treatment room. --10:50 Kami Hair R.N. PHYSICAL ASSESSMENT 10:40. To room via stretcher. Patient gowned. GENERAL / NEURO / PSYCH: Alert. Oriented X 4. RESPIRATORY: Mild respiratory distress. CVS: Pulses within normal limits. Capillary refill less than 2 seconds. EXTREMITIES: Bilateral 1+ edema of the lower extremities involving both ankles. SKIN: Skin is warm and dry. --10:52 Kami Hair R.N. NURSING PROGRESS NOTES 10:40. Oxygen administered. baker doughnut placed on patient. Patient gowned. Head of bed elevated. Reassurance given. Patient identifiers checked. Call light placed in reach. Side rails up. Bed placed in lowest position. Patient ready for evaluation- chart flagged. --10:51 Kami Hair R.N. 10:46. EKG time: (1046). EKG was ordered, performed by a tech and shown to the ED physician. done by Tia denny. --10:53 Kami Hair R.N. 11:04 10/03/2016 Site #1 started via IV in the left antecubital space with an 20g angiocath, with aseptic technique and good blood return. Blood drawn. Labeled in the presence of the patient and sent to the lab. Saline lock flushed with 10 mL saline. --11:09 Deborah Chatman R.N. 11:05 10/03/16. BP: 146/87. HR: 68. RR: 16. O2 saturation: 100% on nasal cannula at 2 liters/minute. Temp: deferred. Pain level now: 08/31. --11:10 Kaim Hair R.N. late entry -11:04 IV started, bloods to lab. pt resting queitly, watching t.v. --11:14 Kami Hair R.N. 11:14 10/03/2016 Ativan (LORazepam) IVP 0.5 mg given over 1 minute(s) via site #1. IV patency established. IV site checked: no pain, redness, or swelling. IV flushed thoroughly pre- and post-medication administration. IVP given by RN. --11:30 Kami Hair R.N. 11:15 10/03/2016 Aspirin PO Tablets 324 mg given. Allergies verified and confirmed 5 rights. --11:30 Kami Hair R.N. 11:15. Portable chest x-ray ordered, performed and shown to the ED physician. --11:31 Kami Hair R.N. 12:30 10/03/16. BP: 110/76. HR: 73. RR: 18. O2 saturation: 100%. Temp: deferred. Pain level now: 12/01. Additional comments: chronic back pain, "nothing in chest right now". --12:34 Kami Hair R.N. ( Pt given lunch tray, resting quietly, bed adjusted for back pain). --13:17 Kami Hair R.N. 13:00 10/03/16. BP: 138/70. HR: 70. RR: 18. O2 saturation: 100% on nasal cannula at 2 liters/minute. Temp: deferred. Pain level now: 10/31. --13:17 Kami Hair R.N. 14:15 10/03/16. BP: 147/61. HR: 74. RR: 18. O2 saturation: 100% on nasal cannula at 2 liters/minute. Temp: deferred. Pain level now: 10/31. Additional comments: back pain, resting quietly in no acute distress . --14:43 Kami Hair R.N. EKG time: (1444). EKG was ordered, performed by a tech and shown to the ED physician. --14:46 Tia Farrell ER Tech1 14:47. Patient ID band checked for patient name and birthdate: patient confirmed. Blood samples drawn by nurse per protocol ; labeled in presence of the patient and sent to lab: [facility]. (blood drawn from hep lock site for lab. 5cc drawn and wasted, then 6cc drawn for lab sample). --14:53 Kami Hair R.N. 15:30 10/03/16. BP: 140/68. HR: 72. RR: 18. O2 saturation: 100%. Temp: deferred. Pain level now: 10/31. Additional comments: resting quietly, waiting for lab results. given additional sprite . --20:28 Kami Hair R.N. 16:10 10/03/2016 Site #1 removed upon discharge. Bandaid applied. --20:31 Kami Hair R.N. 16:20 10/03/2016 IV Saline Lock Drip IV Discontinued: STOPPED upon discharge. Total amount infused: 0 mL. IV patency established. IV site checked: no pain, redness, or swelling. IV flushed thoroughly. --20:31 Kami Hair R.N. DISPOSITION / DISCHARGE 1620. Condition at departure: improved and stable. No learning barriers present. Discharge instructions provided and reviewed with the patient. Reviewed medication(s) (hydroxazine -- continue other usual meds). Patient verbalized understanding. Written instructions provided in Colombian. ( pt will call [facility] to take him back to his car. Pt is homeless and lives in car.). --20:30 Kami Hair R.N. 16:20 10/03/16. BP: 143/70. HR: 73. RR: 18. O2 saturation: 100%. Temp: deferred. Pain level now: 10/31. --20:30 Kami Hair R.N. Locked/Released at 10/03/2016 20:32 by Kami Hair R.N.
--- NOTE | 2016-10-03 16:10 | ED CLINICAL REPORT ---
Clinical Report - Physicians/Mid Levels [facility] [address] [place] [address] 10/03/2016 10:39 Patient: JACI MCMAHON JR Time Seen: 10:47 Shar 12 2016. Arrived- By ambulance. Historian- patient and EMS personnel. CPT: ER phys charges level 5 plus (#[id number]). EKG interpretation (#[id number]). HISTORY OF PRESENT ILLNESS Chief Complaint: CHEST DISCOMFORT. SHORTNESS OF BREATH. It is described as sharp, "pain" and well localized and chronic and nothing new. and it is described as located in the right chest, central chest and left chest area. This started just prior to arrival and is still present. No nausea, vomiting or diaphoresis. He has had difficulty breathing. (patient notes that he was in his car trying to fix a inflatable pillow with superglue and some other adhesives when this spell of shortness of breath began. He wonders if the fumes may have started this spell. He indicates he is here primarily for shortness of breath and that the chest pain is part of his total body pain that he's had chronically for years. He has nothing new today in terms of chest pain. He also notes that he feels this might be due to anxiety as he's been off of his anxiety medication for the past couple of days.). Similar symptoms previously: As bad. Diagnosis: anxiety. Recent medical care: Not recently seen/assessed. Prehospital Treatment: EMS treatment [facility]E SEWER verbally communicated. EKG time: (10:19 AM). The pre-hospital EKG has been interpreted. The pre-hospital EKG appears to be a good tracing. Normal sinus rhythm. Normal P-waves and CALDERON. Normal QRS complex. Normal axis. Normal ST and T waves. REVIEW OF SYSTEMS No fever, chills, cough, pedal edema or calf pain. No fainting episodes, sore throat, abdominal pain, black stools or difficulty with urination. No skin rash, enlarged lymph nodes, joint pain or bloody stools. Pt unable to do his CPAP as he is living in his car. Is out of anxiety medications. Due to see his Doctor this week. All systems otherwise negative, except as recorded above. PAST HISTORY Chronic body pain due to arthritis. Allergies May have a mild form of COPD as has been put on. Medications: Senna Oral 1 daily . Cetirizine HCl Oral 10 mg, daily. Doxylamine Succinate (Sleep) Oral (Tablet 25 mg) 2 tablets, hs. Loratadine Oral 10 mg, at bedtime. Melatin Oral 2 tabs at HS . MetFORMIN HCl Oral 500 mg, 2x a day. Niacin Oral 1000, at bedtime. ASA Oral 81mg, daily. Flonase Nasal 2 sprays, at bedtime. Marijuana 4-5, daily (for pain, hasnt had lately). Montelukast Sodium Oral 10 mg, daily. Omeprazole Oral 20 mg, 2x a day. PRO AIR INHALER 2 puffs prn. Ranitidine HCl Oral 150 mg, 2x a day. Simvastatin Oral 20 mg, daily. Vitamins/Minerals Oral 1 pill, daily. Allergies: Latex.(rash) Penicillin.(rash). SOCIAL HISTORY Never smoker. Homeless and lives in his car. ADDITIONAL NOTES The nursing notes have been reviewed. PHYSICAL EXAM Vital Signs: 10/03/2016 10:40 BP: 146/87. HR: 69. RR: 20. O2 saturation: 99%. Temp: 97.9 F. Pain level now: 4/10. Appearance: Alert. Anxious. Patient in mild distress. Eyes: Eyes normal inspection. ENT: Pharynx normal. Neck: Normal inspection. CVS: Normal heart rate and rhythm. Heart sounds normal. Pulses normal. Respiratory: No respiratory distress. Chest pain reproducible with palpation of the costal cartilage, with movement of the trunk and left arm and with deep breathing. Breath sounds normal. Abdomen: Soft and nontender. Bowel sounds normal. Back: Normal external inspection. Skin: Skin warm. Normal skin color. No rash. Extremities: Extremities exhibit normal ROM. Neuro: Oriented X 3. No motor deficit. No sensory deficit. LABS, X-RAYS, AND EKG EKG: EKG time: (10:46 AM). No acute ischemia. Normal sinus rhythm. Normal P waves. Normal CALDERON. Normal QRS complex. Normal axis. Normal ST and T waves. Prior EKG unavailable. The study has been interpreted contemporaneously. The study has been independently viewed by me. The EKG appears to be a good tracing. EKG #2: Normal sinus rhythm. Normal P waves. Normal QRS complex. Normal ST and T waves. EKG unchanged when compared with prior EKG. Laboratory Tests: CBC w Diff: (MARIELA: 10/03/2016 10:57) ( [facility] 10/03/2016 11:19) Final results Test Result Flag Units (Reference) WHITE BLOOD COUNT 13.1 H K/uL (4.5-11.5) RED BLOOD COUNT 4.98 M/uL (4.50-5.90) HEMOGLOBIN 14.5 gm/dL (13.5-17.5) HEMATOCRIT 44.1 % (41.0-53.0) MEAN CELL VOLUME 88 fL (80-100) MEAN CORPUSCULAR HGB 29 pg (26-34) MEAN CORPUSCULAR HGB CONC 33 g/dL (31-37) RED CELL DISTRIBUTION WIDTH 14.2 % (11.6-14.8) PLATELET COUNT 305 K/uL (150-400) NEUTROPHIL % 58.9 % (50-75) LYMPH % 31.4 % (25-40) MONO % 7.0 % (3-14) EOSINOPHIL % 2.4 % (0-4) BASOPHIL % 0.3 % (0-2) [id number]: (MARIELA: 10/03/2016 10:57) ( [facility] 10/03/2016 11:44) Final results Test Result Flag Units (Reference) D-DIMER QUANTITATIVE < 0.27 L ug/mLFEU (0.27-0.52) The primary value of this quantitative assay relates toits negative predictive value (i.e. exclusion) of pulmonaryembolism/deep vein thrombosis/DIC.Elevated levels of d-dimer may also occur with:, age, cancer, inflammation, liver disease,post-op, infection, hematoma, coronary disease, peripheralarteriopathy, bleeding disorders and thrombolytic treatment.Results should be correlated with other clinical andradiological data.Testing Methodology: Latex Immunoassay Troponin-I: (MARIELA: 10/03/2016 14:45) ( [facility] 10/03/2016 15:23) Final results Test Result Flag Units (Reference) TROPONIN I <0.05 ng/mL (0.00-1.5) TROPONIN REFERENCE RANGE:<0.1 NEGATIVE0.1-1.5 INDETERMINANT>1.5 POSITIVE BNP: (MARIELA: 10/03/2016 10:57) ( [facility] 10/03/2016 11:43) Final results Test Result Flag Units (Reference) B-TYPE NATRIURETIC PEPTIDE 31.2 pg/ml (5-100) CHEM 13 PANEL: (MARIELA: 10/03/2016 10:57) ( [facility] 10/03/2016 11:40) Final results Test Result Flag Units (Reference) GLUCOSE 113 H mg/dL (70-110) BUN 13 mg/dL (7-18) CREATININE 1.1 mg/dL (0.6-1.3) Estimated GFR >60 mL/min Estimated GFR- >60 mL/min Note: Persistent reduction over 3 months in eGFR<60 mL/min/1.73 m2 defines CKD. Patients with eGFR values>=60 mL/min/1.73 m2 may also have CKD if evidence ofpersistent proteinuria. Additional information may be foundat www.[email or web address].org. SODIUM 142 mmol/L (136-145) POTASSIUM 4.2 mmol/L (3.5-5.1) CHLORIDE 105 mmol/L (98-107) CARBON DIOXIDE 31 mmol/L (21-32) CALCIUM 9.4 mg/dL (8.5-10.1) TOTAL PROTEIN 7.2 g/dL (6.4-8.2) ALBUMIN 3.4 g/dL (3.3-5.0) BILIRUBIN, TOTAL 0.2 mg/dL (0.0-1.0) ALKALINE PHOSPHATASE 46 U/L (46-116) AST (SGOT) 19 U/L (15-37) ALT (SGPT) 35 U/L (12-78) CPK 88 U/L (24-260) MAGNESIUM 2.1 mg/dL (1.8-2.4) TROPONIN I <0.05 ng/mL (0.00-1.5) TROPONIN REFERENCE RANGE:<0.1 NEGATIVE0.1-1.5 INDETERMINANT>1.5 POSITIVE THYROID STIMULATING HORMONE 0.850 uIU/mL (0.34-3.74) . PROGRESS AND PROCEDURES Course of Care: 15:03 10/03/16. Staff did not see new orders for EKG and Troponin. Staff working on getting these done now. Labs and EKG normal . Patient/family counseled. Disposition: Discharged. Condition: stable and improved. CLINICAL IMPRESSION Anxiety reaction with hyperventilation. Out of anxiety medications. INSTRUCTIONS Warnings: Further evaluation is necessary. GENERAL WARNINGS: Return or contact your physician immediately if your condition worsens or changes unexpectedly, if not improving as expected, or if other problems arise. Your Current Medications: CONTINUE TAKING THE FOLLOWING MEDICATIONS: ASA Oral : 81mg daily. Cetirizine HCl Oral : 10 mg daily. Doxylamine Succinate (Sleep) Oral : Tablet 25 mg, 2 tablets hs. Flonase Nasal : 2 sprays at bedtime. Loratadine Oral : 10 mg at bedtime. Marijuana* : 4-5 daily, for pain, hasnt had lately. Melatin Oral : 2 tabs at HS. MetFORMIN HCl Oral : 500 mg 2x a day. Montelukast Sodium Oral : 10 mg daily. Niacin Oral : 1000 at bedtime. Omeprazole Oral : 20 mg 2x a day. PRO AIR INHALER* : 2 puffs prn. Ranitidine HCl Oral : 150 mg 2x a day. Senna Oral : 1 daily. Simvastatin Oral : 20 mg daily. Vitamins/Minerals Oral : 1 pill daily. Prescription Medications: Hydroxyzine 50 mg: Take 1 orally every 6 hours as needed for anxiety. Dispense twenty (20). No refills. Follow-up: Follow up with your doctor in three days as scheduled. Understanding of the discharge instructions verbalized by patient. (Electronically signed by Ryan Santoro MD 10/04/2016 20:47)
--- NOTE | 2016-10-04 20:47 | ED MED RECONCILIATION SUMMARY ---
Patient: JACI MCMAHON Medication Reconciliation Report [facility] VisitID: [id number] [address] [place] [address] 51y, M Registration Date/Time: 10/03/2016 Weight: 89.3 kg Height/Length: 65 in. BMI: 32.8 ALLERGIES: Latex, Penicillin The patient's Home Medications are listed below: CONTINUE TAKING THE FOLLOWING MEDICATIONS: ASA Oral 81mg, daily Cetirizine HCl Oral 10 mg, daily Doxylamine Succinate (Sleep) Oral (25 mg) 2 tablets, hs Flonase Nasal 2 sprays, at bedtime Loratadine Oral 10 mg, at bedtime Marijuana 4-5, daily, for pain, hasnt had lately Melatin Oral 2 tabs at HS MetFORMIN HCl Oral 500 mg, 2x a day Montelukast Sodium Oral 10 mg, daily Niacin Oral 1000, at bedtime Omeprazole Oral 20 mg, 2x a day PRO AIR INHALER 2 puffs prn Ranitidine HCl Oral 150 mg, 2x a day Senna Oral 1 daily Simvastatin Oral 20 mg, daily Vitamins/Minerals Oral 1 pill, daily The source(s) of the original Home Medication information: Not obtained. The following Medications were given to the patient in the Emergency Department: Aspirin [PO] PO 324 mg, administered: 10/03/2016 11:15:00 AM Ativan [IVP] IVP 0.5 mg, administered: 10/03/2016 11:14:00 AM The following Medications were prescribed to the patient: Hydroxyzine 50 mg: Take 1 orally every 6 hours as needed for anxiety. Dispense twenty (20). No refills. -- Ryan Santoro MD
--- NOTE | 2016-10-04 20:47 | ED MAR SUMMARY ---
..... Medication Administration Record [facility] [address] [place] [address] Patient: JACI MCMAHON Visit ID: [id number] 51y, M Weight: 89.3 kg Height/Length: 65 in BMI: 32.8 ALLERGIES: Latex, Penicillin Given 11:14 10/03/2016 Kami Hair R.N. Medication Administered: ATIVAN [IVP] (LORAZEPAM), Dose: 0.5 mg IVP over 1 minute(s), Site: #1 left AC. Medication Ordered: Ativan IV 0.5 mg (NOW). Given 11:15 10/03/2016 Kami Hair RYoelN. Medication Administered: ASPIRIN [PO], Dose: 324 mg Tablets PO. Medication Ordered: Aspirin PO 325 mg (Do not crush or chew).
--- NOTE | 2016-10-04 20:47 | ED DISCHARGE INSTRUCTIONS ---
Patient: JACI MCMAHON JR General Instructions [facility] VisitID: [id number] [place] [address] 51y, M Registration Date/Time: 10/03/2016 Anxiety reaction with hyperventilation. Out of anxiety medications. INSTRUCTIONS Warnings: Further evaluation is necessary. GENERAL WARNINGS: Return or contact your physician immediately if your condition worsens or changes unexpectedly, if not improving as expected, or if other problems arise. Your Current Medications: CONTINUE TAKING THE FOLLOWING MEDICATIONS: ASA Oral : 81mg daily. Cetirizine HCl Oral : 10 mg daily. Doxylamine Succinate (Sleep) Oral : Tablet 25 mg, 2 tablets hs. Flonase Nasal : 2 sprays at bedtime. Loratadine Oral : 10 mg at bedtime. Marijuana* : 4-5 daily, for pain, hasnt had lately. Melatin Oral : 2 tabs at HS. MetFORMIN HCl Oral : 500 mg 2x a day. Montelukast Sodium Oral : 10 mg daily. Niacin Oral : 1000 at bedtime. Omeprazole Oral : 20 mg 2x a day. PRO AIR INHALER* : 2 puffs prn. Ranitidine HCl Oral : 150 mg 2x a day. Senna Oral : 1 daily. Simvastatin Oral : 20 mg daily. Vitamins/Minerals Oral : 1 pill daily. Prescription Medications: Hydroxyzine 50 mg: Take 1 orally every 6 hours as needed for anxiety. Dispense twenty (20). No refills. Follow-up: Follow up with your doctor in three days as scheduled. Understanding of the discharge instructions verbalized by patient. ADDITIONAL INFORMATION Stress Reaction Anxiety is the feeling we all get when we think something bad might happen. It is a normal response to stress and usually causes only a mild reaction. When anxiety becomes more severe, emotions may interfere with daily life. In some cases, you may not even be aware of what it is youre anxious about! During an anxiety reaction, you may feel like you are helpless, nervous, depressed or irritable. Your body may show signs of anxiety in many ways. You may experience dry mouth, shakiness, dizziness, weakness, trouble breathing, chest pressure, headache, nausea, diarrhea, tiredness, inability to sleep or sexual problems. Home Care: 1) Try to locate the sources of stress in your life. They may not be obvious! These may include: -- Daily hassles of life which pile up (traffic jams, missed appointments, car troubles, etc.) -- Major life changes, both good (new baby, job promotion) and bad (loss of job, loss of loved one) -- Overload: feeling that you have too many responsibilities and can't take care of all of them at once -- Feeling helpless, feeling that your problems are beyond what youre able to solve 2) Notice how your body reacts to stress. Learn to listen to your body signals. This will help you take action before the stress becomes severe. 3) When you can, do something about the source of your stress. (Avoid hassles, limit the amount of change that happens in your life at one time and take a break when you feel overloaded). 4) Unfortunately, many stressful situations cannot be avoided. It is necessary to learn HOW TO MANAGE STRESS better. There are many proven methods that will reduce your anxiety. These include simple things like exercise, good nutrition and adequate rest. Also, there are certain techniques that are helpful: relaxation and breathing exercises, visualization, biofeedback and meditation. For more information about this, consult your doctor or go to a local bookstore and review the many books and tapes available on this subject. Follow Up If you feel that your anxiety is not responding to self-help measures, contact your doctor or make an appointment with a counselor. Get Prompt Medical Attention if any of the following occur: -- Your symptoms get worse -- Chest pain or trouble breathing -- Severe headache not relieved by rest and mild pain reliever -- Rapid or irregular heartbeat, fainting Panic Attack A panic attack is an extreme fear reaction that comes on for no apparent reason. Symptoms may include pounding or racing heartbeat, shortness of breath, dizziness, weakness and sweating. There is usually a fear that something terrible will happen or that you may . The attack may last a few minutes up to a few hours. Between attacks things will seem quite normal. This condition has a psychological cause and can be treated with the help of a therapist or psychiatrist. Medication is often used and can be very helpful for this problem. Home Care: Try to identify the sources of stress in your life. It may not be obvious! These may include: Daily hassles of life which pile up (traffic jams, missed appointments, car troubles, etc.). Major life changes, both good (new baby, job promotion) and bad (loss of job, loss of loved one). Overload: feeling that you have too many responsibilities and can't take care of everything at once. Helplessness: feeling like your problems are too much for you to handle. Notice how your body reacts to stress. Learn to listen to your body signals so that you can take action before the stress becomes severe. When possible, AVOID or REDUCE THE CAUSE OF STRESS. Avoid hassles, limit the amount of change that is happening in your life at one time or take a break when you feel overloaded. Unfortunately, many stressful situations cannot be avoided. Therefore, it is necessary to LEARN HOW TO MANAGE STRESS better. There are many proven methods that work and will reduce your anxiety. These include simple things like exercise, good nutrition and adequate rest. Also, there are certain techniques that are helpful: relaxation and breathing exercises, visualization, biofeedback, meditation or simply taking some time-out to clear your mind. For more information about this, consult your doctor or go to a local bookstore and review the many books and tapes available on this subject. Follow Up with your doctor or a therapist as advised. Get Prompt Medical Attention if any of the following occur: Worsening of your symptoms to the point of feeling [id number] A change in the type of pain: if it feels different, becomes more severe, lasts longer, or begins to spread into your shoulder, arm, neck, jaw or back Shortness of breath or increased pain with breathing Increasing feeling of weakness or dizziness Fainting Cough with dark colored sputum (phlegm) or blood Fever of 100.4F (38C) or higher, or as directed by your healthcare provider Swelling, pain or redness in one leg You have been given the following additional information: Anxiety Reaction Panic Attack (Electronically signed by Ryan Santoro MD 10/04/2016 20:47)
--- NOTE | 2016-10-04 20:47 | ED MED RECONCILIATION SUMMARY ---
Patient: JACI MCMAHON Medication Reconciliation Report [facility] VisitID: [id number] [address] [place] [address] 51y, M Registration Date/Time: 10/03/2016 Weight: 89.3 kg Height/Length: 65 in. BMI: 32.8 ALLERGIES: Latex, Penicillin The patient's Home Medications are listed below: CONTINUE TAKING THE FOLLOWING MEDICATIONS: ASA Oral 81mg, daily Cetirizine HCl Oral 10 mg, daily Doxylamine Succinate (Sleep) Oral (25 mg) 2 tablets, hs Flonase Nasal 2 sprays, at bedtime Loratadine Oral 10 mg, at bedtime Marijuana 4-5, daily, for pain, hasnt had lately Melatin Oral 2 tabs at HS MetFORMIN HCl Oral 500 mg, 2x a day Montelukast Sodium Oral 10 mg, daily Niacin Oral 1000, at bedtime Omeprazole Oral 20 mg, 2x a day PRO AIR INHALER 2 puffs prn Ranitidine HCl Oral 150 mg, 2x a day Senna Oral 1 daily Simvastatin Oral 20 mg, daily Vitamins/Minerals Oral 1 pill, daily The source(s) of the original Home Medication information: Not obtained. The following Medications were given to the patient in the Emergency Department: Aspirin [PO] PO 324 mg, administered: 10/03/2016 11:15:00 AM Ativan [IVP] IVP 0.5 mg, administered: 10/03/2016 11:14:00 AM The following Medications were prescribed to the patient: Hydroxyzine 50 mg: Take 1 orally every 6 hours as needed for anxiety. Dispense twenty (20). No refills. -- Ryan Santoro MD
--- NOTE | 2016-10-04 20:47 | ED MAR SUMMARY ---
..... Medication Administration Record [facility] [address] [place] [address] Patient: JACI MCMAHON Visit ID: [id number] 51y, M Weight: 89.3 kg Height/Length: 65 in BMI: 32.8 ALLERGIES: Latex, Penicillin Given 11:14 10/03/2016 Kami Hair R.N. Medication Administered: ATIVAN [IVP] (LORAZEPAM), Dose: 0.5 mg IVP over 1 minute(s), Site: #1 left AC. Medication Ordered: Ativan IV 0.5 mg (NOW). Given 11:15 10/03/2016 Kami Hair RYoelN. Medication Administered: ASPIRIN [PO], Dose: 324 mg Tablets PO. Medication Ordered: Aspirin PO 325 mg (Do not crush or chew).
== END 2016-10-03 16:20 | disposition home or self-care (01) ==
LOC: ED SRH 10:33
DX: F41.1 Generalized anxiety disorder (principal); R06.4 Hyperventilation; R07.89 Other chest pain; R06.02 Shortness of breath; Z79.899 Other long term (current) drug therapy; Z79.84 Long term (current) use of oral hypoglycemic drugs; Z91.040 Latex allergy status; Z88.0 Allergy status to penicillin; Z79.82 Long term (current) use of aspirin
CPT/HCPCS: 90074; 90100; 90616; 91320; 91556; 92610; 92720; 93140; 95059